=== PATIENT | female | born 2000 | race American Indian/Alaskan Native ===

== ENCOUNTER → 2022-05-27 12:56 | Outpatient (CLI) | payer OTHER, MEDICAID, SELFPAY ==
--- NOTE | 2022-05-27 | DI.RAD.S_ITS ---
PROCEDURE: XR KUB INDICATIONS: Left lower quadrant pain TECHNIQUE: One view of the abdomen acquired. COMPARISON: None. FINDINGS: Surgical changes and devices: None. Bowel: There is a large amount of stool in the ascending colon. The bowel gas pattern is otherwise normal. Soft tissues: No suspicious abdominal calcifications. Visualized solid organ contours appear normal in size. Bones: No suspicious bony lesions. IMPRESSION: Large amount of stool in the ascending colon. Otherwise unremarkable bowel gas pattern. Dictated by: Tali Leach M.D. on 05/27/2022 at 13:22 Approved by: Tali Leach M.D. on 05/27/2022 at 13:23
== END ==
PROVIDERS: PCP Family Medicine; Referring Provider Family Medicine; Visit Provider Family Medicine
DX: R10.32 Left lower quadrant pain (principal)
CPT/HCPCS: 74018

== ENCOUNTER → 2023-08-29 16:14 | Outpatient (CLI) | payer OTHER, SELFPAY ==
[2023-08-29 18:01] LABS: Add Manual Diff / Slide Review NO; Basophils Absolute Auto 100 /uL (0-100); Basophils Percent Auto 0.5 % (0-2); Eosinophils Absolute Auto 100 /uL (0-450); Eosinophils Percent Auto 0.9 % (2-4); Hematocrit 37.8 % (36-46); Hemoglobin 12.8 g/dL (12.0-16.0); Lymphocytes Absolute Auto 2800 /uL (1100-4500); Lymphocytes Percent Auto 27.6 % (25-40); Mean Corpuscular Volume 85.5 fL (80-100); Monocytes Absolute Auto 1100 /uL (0-900); Monocytes Percent Auto 10.5 % (3-14); Neutrophils Absolute Auto 6200 /uL (1500-7000); Neutrophils Percent Auto 60.5 % (50-75); Platelet Count 414 X10^3/uL (150-400); Red Blood Cell Count 4.42 X10^6/uL (4.0-5.2); Red Cell Distribution Width 13.9 % (11.6-14.8); White Blood Cell Count 10.3 X10^3/uL (4.5-11.0)
[2023-08-29 18:17] LABS: Hemoglobin A1C% w Est Avg Glu 5.6 % (4.0-6.0)
[2023-08-29 18:28] LABS: Alanine Aminotransferase 32 IU/L (<35); Albumin 4.4 g/dL (3.5-5.0); Albumin Globulin Ratio 1.5 (1.0-2.8); Alkaline Phosphatase 47 U/L (38-126); Aspartate Aminotransferase 23 IU/L (14-36); BUN Creatinine Ratio 15.5 (6-22); Bilirubin Total 0.4 mg/dL (0.2-1.3); Blood Urea Nitrogen 11 mg/dL (7-17); Calcium 9.2 mg/dL (8.4-10.2); Carbon Dioxide 26 mmol/L (22-32); Chloride 104 mmol/L (98-107); Cholesterol 137 mg/dL (140-199); Estimated Glomerular Filt Rate > 60 mL/min (>60); Globulin 2.9 g/dL (1.7-4.1); Glucose 81 mg/dL (70-100); HDL Cholesterol 52 mg/dL (40-60); HEMOLYSIS < 15 (0-50); LDL Cholesterol Calculated 73 mg/dL (<100); Lipase 34 U/L (23-300); Potassium 3.7 mmol/L (3.4-5.1); Sodium 139 mmol/L (137-145); Total Protein 7.3 g/dL (6.3-8.2); Triglycerides 59 mg/dL (35-150)
[2023-08-31 04:37] LABS: Interpretation Positive (Negative)
== END ==
PROVIDERS: PCP Family Medicine; Referring Provider Registered Nurse; Visit Provider Registered Nurse
DX: R10.9 Unspecified abdominal pain (principal); Z13.1 Encounter for screening for diabetes mellitus; Z13.220 Encounter for screening for lipoid disorders
CPT/HCPCS: 36415; 80053; 80061; 83013; 83036; 83690; 85025

== ENCOUNTER → 2023-11-07 15:48 | Outpatient (CLI) | payer OTHER, SELFPAY ==
--- NOTE | 2023-11-07 16:19 | DI.CT.S_ITS ---
PROCEDURE: CT IVP A/P W/WO INDICATIONS: LUQ/FLANK PAIN/MONOCYTOSIS TECHNIQUE: Optional 5 mm thick noncontrast images acquired from the diaphragm to the symphysis pubis. After the administration of intravenous contrast, 5 mm thick images acquired from the diaphragm to the symphysis pubis after a 10-minute delay. 2 mm thick coronal and sagittal reformats were then performed of the kidneys and ureters. For radiation dose reduction, the following was used: automated exposure control, adjustment of mA and/or kV according to patient size. COMPARISON: None. FINDINGS: Image quality: Diagnostic. Kidneys and Ureters: Both kidneys are normal in size, without hydronephrosis or nephrolithiasis. No perinephric fat stranding. There is normal bilateral renal enhancement. Renal calyces appear normal in morphology when filled with contrast. Opacified portions of both ureters demonstrate normal caliber Bladder: Bladder wall thickness is normal. No calcified bladder stones. OTHER: Lung bases: Unremarkable. Heart: No significant findings. Liver: No solid mass. Gallbladder: No radiopaque gallstones or wall thickening. Biliary ducts: No biliary dilation. Pancreas: No ductal dilation. Spleen: Size is within normal limits. Measures about 9.5 cm in greatest diameter. Adrenal Glands: No adrenal nodules. Stomach and Bowel: Stomach and small bowel loops are normal caliber. Normal appendix and colon. Peritoneum: No abnormal intraperitoneal fluid. No free air. Ventral Wall: No hernia. Abdominal Nodes: No retroperitoneal or mesenteric adenopathy by size criteria. Vessels: Aorta and inferior vena cava are normal in size. PELVIS: Pelvic Organs: Uterus and ovaries have a normal CT appearance. Pelvic Nodes: No enlarged lymph nodes. Miscellaneous: No inguinal hernias are seen. Bones: No aggressive osseous abnormality. IMPRESSION: No nephrolithiasis or filling defects within the opacified renal collecting system or ureters. Normal size spleen. Dictated by: Talia Rodriguez M.D. on 11/08/2023 at 9:23 Approved by: Talia Rodriguez M.D. on 11/08/2023 at 9:29
== END ==
PROVIDERS: PCP Family Medicine; Referring Provider Registered Nurse; Visit Provider Registered Nurse
DX: D72.821 Monocytosis (symptomatic) (principal)
CPT/HCPCS: 74178; Q9967

== ENCOUNTER 2023-11-20 11:12 | Emergency (ER) | payer OTHER, SELFPAY ==
[2023-11-20 11:31] VITALS: BP 105/63; PULSE 79; RESP 16; TEMP 36.9; O2SAT 99; BMI 29.8
[2023-11-20 12:37] VITALS: BP 104/60; PULSE 73; RESP 16; TEMP 37.1; O2SAT 97
--- NOTE | 2023-11-20 13:08 | ED_ITS ---
HPI - Abdominal Pain <NEETA Field - Last Filed: 11/20/23 14:37> General Chief Complaint: Abdominal Pain Stated Complaint: stomach pains Time Seen by Provider: 11/20/23 12:28 Source: patient Mode of arrival: Ambulatory History of Present Illness HPI narrative: 22-year-old female, current some day smoker, presents to emergency department with lower abdominal pain and black stools x3 days. Patient has had left flank pain for 2 months. Patient is currently being treated for H pylori and has an appointment with a GI specialist in 3 days[place] H pylori and preparation H for her hemorrhoids. Patient states that she has been followed by her family doctor for persistent hematuria with all testing for UTIs being negative. Related Data Previous Rx's Medication Instructions Recorded ondansetron 4 mg disintegrating 4 mg PO Q6H PRN nausea and 11/20/23 tablet vomiting #10 tabs Allergies Allergy/AdvReac Type Severity Reaction Status Date / Time No Known Drug Allergies Allergy Verified 11/20/23 11:31 Review of Systems <NEETA Field - Last Filed: 11/20/23 14:37> Review of Systems Narrative: Narrative: See HPI. GENERAL: Denies chills, fatigue, fever, sweats. HEENT: Denies sinus pain, ear pain, sore throat, difficulty swallowing, dizziness. RESPIRATORY: Denies dyspnea, cough, wheezing, sputum. CARDIOVASCULAR: Denies chest pain, palpitations, edema. GASTROINTESTINAL: Denies nausea, vomiting, diarrhea, constipation. Endorses lower abdominal pain and black stools. Endorses alternating between diarrhea and constipation. Last BM was last night and was ?mushy?. : Denies dysuria, frequency, incontinence, hematuria, urinary retention. Endorses two-month history of left flank pain. MSK: Denies weakness, joint pain, or bony pain. SKIN: Denies rash, skin lesions, or pruritis. NEUROLOGIC: Denies weakness, dizziness, headache, numbness, confusion. PSYCHIATRIC: No concerning psychosocial issues. Patient History <NEETA Field - Last Filed: 11/20/23 14:37> Social History Smoking Status: Current some day smoker Smoking Status: Current some day smoker tobacco type: vaping Substance Use Type: does not use Exam <NEETA Field - Last Filed: 11/20/23 14:37> Narrative Exam Narrative: Exam Narrative: GENERAL: This is a well-nourished, well-developed patient, in no acute distress. HEAD: Atraumatic. Normocephalic. EYES: Pupils equal round and reactive. No scleral icterus, injection or drainage. ENT: Nose without bleeding, purulent drainage. Airway patent. CARDIOVASCULAR: Regular rate and rhythm without murmurs, peripheral pulses intact, cap refill <2 sec. RESPIRATORY: Breath sounds equal and clear bilaterally. No wheezes, rales, or rhonchi. No cough. No increased respiratory effort. No accessory muscle use. GASTROINTESTINAL: Abdomen soft, mild lower quadrant tenderness, nondistended without guarding or rebound. No suprapubic pain. Guaiac test was negative. MSK: Moves all extremities. Normal range of motion, no clubbing or edema. Neurovascularly intact. NEURO: A&O x 3. SKIN: Warm, dry, no rashes or lesions noted. Initial Vital Signs Initial Vital Signs: Vital Signs Temperature 98.5 F 11/20/23 11:31 Pulse Rate 79 11/20/23 11:31 Respiratory Rate 16 11/20/23 11:31 Blood Pressure 105/63 11/20/23 11:31 Pulse Oximetry 99 11/20/23 11:31 Oxygen Delivery Method Room Air 11/20/23 11:31 Reviewed <Tristan Crespo MD - Last Filed: 11/21/23 18:27> Initial Vital Signs Initial Vital Signs: Vital Signs Temperature 98.5 F 11/20/23 11:31 Pulse Rate 79 11/20/23 11:31 Respiratory Rate 16 11/20/23 11:31 Blood Pressure 105/63 11/20/23 11:31 Pulse Oximetry 99 11/20/23 11:31 Oxygen Delivery Method Room Air 11/20/23 11:31 Course <NEETA Field - Last Filed: 11/20/23 14:37> Orders Ordered: ED Orders 11/20/23 13:09 CBC Auto Diff [Complete Blood Count AUTO DIFF] Stat CMP [Comprehensive Metabolic Panel] Stat PT [Prothrombin Time INR] Stat PTT Partial Thromboplastin Garret Stat Vital Signs Vital signs: Vital Signs - 8 hr 11/20/23 11:31 11/20/23 12:37 Temperature 98.5 F 98.8 F Pulse Rate 79 73 Respiratory Rate 16 16 Blood Pressure 105/63 104/60 Pulse Oximetry 99 97 Oxygen Delivery Method Room Air Room Air <Tristan Crespo MD - Last Filed: 11/21/23 18:27> Orders Ordered: ED Orders 11/20/23 13:09 CBC Auto Diff [Complete Blood Count AUTO DIFF] Stat CMP [Comprehensive Metabolic Panel] Stat PT [Prothrombin Time INR] Stat PTT Partial Thromboplastin Garret Stat Vital Signs Vital signs: Vital Signs - 8 hr 11/20/23 11:31 11/20/23 12:37 Temperature 98.5 F 98.8 F Pulse Rate 79 73 Respiratory Rate 16 16 Blood Pressure 105/63 104/60 Pulse Oximetry 99 97 Oxygen Delivery Method Room Air Room Air MDM - Abdominal Pain <NEETA Field - Last Filed: 11/20/23 14:37> Differential Diagnosis Differential diagnosis: Likely abdominal pain and other (GI bleed, UTI) Lab Data 11/20/23 13:09 11/20/23 13:09 Labs: Lab Results 11/20/23 Range/Units 13:09 WBC 8.8 (4.5-11.0) X10^3/uL RBC 4.45 (4.0-5.2) X10^6/uL Hgb 12.6 (12.0-16.0) g/dL Hct 37.9 (36-46) % MCV 85.1 (80-100) fL MCH 28.4 (26-34) PG MCHC 33.3 (30-36) % RDW 14.0 (11.6-14.8) % Plt Count 437 H (150-400) X10^3/uL Neut % (Auto) 60.1 (50-75) % Lymph % (Auto) 29.4 (25-40) % [place] % (Auto) 8.8 (3-14) % Eos % (Auto) 0.9 L (2-4) % Baso % (Auto) 0.8 (0-2) % Neut # (Auto) 5300 (3138-6124) /uL Lymph # (Auto) 2600 (8545-7267) /uL [place] # (Auto) 800 (0-900) /uL Eos # (Auto) 100 (0-450) /uL Baso # (Auto) 100 (0-100) /uL PT 13.5 H (9.4-12.5) SECONDS INR 1.2 (0.9-1.3) APTT 28 (25.1-36.5) SECONDS Sodium 138 (137-145) mmol/L Potassium 3.9 (3.4-5.1) mmol/L Chloride 105 (98-107) mmol/L Carbon Dioxide 27 (22-32) mmol/L BUN 14 (7-17) mg/dL Creatinine 0.74 (0.52-1.04) mg/dL Estimated GFR > 60 (>60) mL/min BUN/Creatinine Ratio 18.9 (6-22) Glucose 93 (70-100) mg/dL Calcium 9.2 (8.4-10.2) mg/dL Total Bilirubin 0.6 (0.2-1.3) mg/dL AST 24 (14-36) IU/L ALT 22 (<35) IU/L Alkaline Phosphatase 53 (38-126) U/L Total Protein 7.7 (6.3-8.2) g/dL Albumin 4.2 (3.5-5.0) g/dL Globulin 3.5 (1.7-4.1) g/dL Albumin/Globulin Ratio 1.2 (1.0-2.8) Point of care testing: Point of Care Testing Test Results Negative Urine Dip Bedside Urine Glucose Negative Bedside Urine Bilirubin - Negative Bedside Urine Ketone - Negative Urine Specific [place] 1.025 Bedside Urine Occult Blood ++ Bedside Urine pH 6.0 Bedside Urine Protein - Negative Bedside Urine Urobilinogen - Negative Bedside Urine Nitrite - Negative Bedside Urine Leukocytes - Negative Esterase MDM Narrative Medical decision making narrative: 22-year-old female with reported black stools. Assessment was unremarkable and guaiac test was negative. No visible external hemorrhoids. Labs were all within normal limits. Patient does have hematuria, but that has been normal for her and is being followed up with by her family doctor. Point of care urine dip was not consistent with UTI. Will send patient home with a short prescription of ondansetron. Patient has an appointment with her GI specialist in 3 days. I suspect the medication she is taking, that has bismuth subcitrate in it, may be the cause of her dark stools. Discussed plan of care with patient and mother, who verbalized understanding and were agreeable with course of action. <Tristan Crespo MD - Last Filed: 11/21/23 18:27> Lab Data Labs: Lab Results 11/20/23 Range/Units 13:09 WBC 8.8 (4.5-11.0) X10^3/uL RBC 4.45 (4.0-5.2) X10^6/uL Hgb 12.6 (12.0-16.0) g/dL Hct 37.9 (36-46) % MCV 85.1 (80-100) fL MCH 28.4 (26-34) PG MCHC 33.3 (30-36) % RDW 14.0 (11.6-14.8) % Plt Count 437 H (150-400) X10^3/uL Neut % (Auto) 60.1 (50-75) % Lymph % (Auto) 29.4 (25-40) % [place] % (Auto) 8.8 (3-14) % Eos % (Auto) 0.9 L (2-4) % Baso % (Auto) 0.8 (0-2) % Neut # (Auto) 5300 (9646-8321) /uL Lymph # (Auto) 2600 (9671-7110) /uL [place] # (Auto) 800 (0-900) /uL Eos # (Auto) 100 (0-450) /uL Baso # (Auto) 100 (0-100) /uL PT 13.5 H (9.4-12.5) SECONDS INR 1.2 (0.9-1.3) APTT 28 (25.1-36.5) SECONDS Sodium 138 (137-145) mmol/L Potassium 3.9 (3.4-5.1) mmol/L Chloride 105 (98-107) mmol/L Carbon Dioxide 27 (22-32) mmol/L BUN 14 (7-17) mg/dL Creatinine 0.74 (0.52-1.04) mg/dL Estimated GFR > 60 (>60) mL/min BUN/Creatinine Ratio 18.9 (6-22) Glucose 93 (70-100) mg/dL Calcium 9.2 (8.4-10.2) mg/dL Total Bilirubin 0.6 (0.2-1.3) mg/dL AST 24 (14-36) IU/L ALT 22 (<35) IU/L Alkaline Phosphatase 53 (38-126) U/L Total Protein 7.7 (6.3-8.2) g/dL Albumin 4.2 (3.5-5.0) g/dL Globulin 3.5 (1.7-4.1) g/dL Albumin/Globulin Ratio 1.2 (1.0-2.8) Point of care testing: Point of Care Testing Test Results Negative Urine Dip Bedside Urine Glucose Negative Bedside Urine Bilirubin - Negative Bedside Urine Ketone - Negative Urine Specific [place] 1.025 Bedside Urine Occult Blood ++ Bedside Urine pH 6.0 Bedside Urine Protein - Negative Bedside Urine Urobilinogen - Negative Bedside Urine Nitrite - Negative Bedside Urine Leukocytes - Negative Esterase MDM Narrative Medical decision making narrative: 22-year-old female with reported black stools. Assessment was unremarkable and guaiac test was negative. No visible external hemorrhoids. Labs were all within normal limits. Patient does have hematuria, but that has been normal for her and is being followed up with by her family doctor. Point of care urine dip was not consistent with UTI. Will send patient home with a short prescription of ondansetron. Patient has an appointment with her GI specialist in 3 days. I suspect the medication she is taking, that has bismuth subcitrate in it, may be the cause of her dark stools. Discussed plan of care with patient and mother, who verbalized understanding and were agreeable with course of action. Case was discussed prior to discharge. I agree with the above plan Discharge Plan Departure Patient Disposition: Home Clinical Impression: Nausea Instructions: DI for Abdominal Pain-Adult Activity Restrictions/Additional Instructions: *You have been diagnosed with nausea. My assessment was encouraging and your labs were all within normal limits. Your CT from last month was normal and therefore a repeat was not conducted. There was no blood found in your stool at this time. Due to these positive results, I Feel confident sending you home before your appointment with GI in 3 days. I suspect the medication you are taking contributed to your dark stools. Will send a prescription for a short course of antinausea medication to help you stay hydrated and eat. For any worsening symptoms, please feel free to return to the emergency department. *What to do: *Please continue to take your regular medications as directed. [ x] New medication prescriptions sent to your pharmacy: [[facility]] [ ] New medication written as a paper prescription [ ] No new medications given *Please follow up with your primary care provider in 2-3 days, call for an appointment. Let them know you were seen in the Emergency Department and that we ask that you be seen in follow up. We will electronically transmit a record of today's note if your PCP is in our system *If you do not have a primary care provider please contact the [facility] Resource line at [phone]. They will ask some questions about your medical history and help get you set up with a doctor in the community. ? Return to ER if you should have any new, worsening or concerning symptoms, such as worsening pain, severe headache, confusion, chest pain, difficulty breathing, fever greater than 101 F, shaking chills, persistent vomiting to the point that you cannot drink fluids, or other new or worsening symptoms. Prescriptions: New ondansetron 4 mg tablet,disintegrating 4 mg PO Q6H PRN (Reason: nausea and vomiting) Qty: 10 0RF Referrals: Mabel Hartman ARNP [Primary Care Provider] - Stand Alone Forms: Patient Portal/API
[2023-11-20 13:33] LABS: INR 1.2 (0.9-1.3); Prothrombin Time 13.5 SECONDS (9.4-12.5)
[2023-11-20 13:36] LABS: Add Manual Diff / Slide Review NO; Basophils Absolute Auto 100 /uL (0-100); Basophils Percent Auto 0.8 % (0-2); Eosinophils Absolute Auto 100 /uL (0-450); Eosinophils Percent Auto 0.9 % (2-4); Hematocrit 37.9 % (36-46); Hemoglobin 12.6 g/dL (12.0-16.0); Lymphocytes Absolute Auto 2600 /uL (1100-4500); Lymphocytes Percent Auto 29.4 % (25-40); Mean Corpuscular HGB Conc 33.3 % (30-36); Mean Corpuscular Hemoglobin 28.4 PG (26-34); Mean Corpuscular Volume 85.1 fL (80-100); Monocytes Absolute Auto 800 /uL (0-900); Monocytes Percent Auto 8.8 % (3-14); Neutrophils Absolute Auto 5300 /uL (1500-7000); Neutrophils Percent Auto 60.1 % (50-75); PTT Partial Thromboplastin Tim 28 SECONDS (25.1-36.5); Platelet Count 437 X10^3/uL (150-400); Red Blood Cell Count 4.45 X10^6/uL (4.0-5.2); White Blood Cell Count 8.8 X10^3/uL (4.5-11.0)
[2023-11-20 13:37] LABS: Alanine Aminotransferase 22 IU/L (<35); Albumin 4.2 g/dL (3.5-5.0); Albumin Globulin Ratio 1.2 (1.0-2.8); Alkaline Phosphatase 53 U/L (38-126); Aspartate Aminotransferase 24 IU/L (14-36); BUN Creatinine Ratio 18.9 (6-22); Bilirubin Total 0.6 mg/dL (0.2-1.3); Blood Urea Nitrogen 14 mg/dL (7-17); Calcium 9.2 mg/dL (8.4-10.2); Carbon Dioxide 27 mmol/L (22-32); Chloride 105 mmol/L (98-107); Estimated Glomerular Filt Rate > 60 mL/min (>60); Globulin 3.5 g/dL (1.7-4.1); Glucose 93 mg/dL (70-100); HEMOLYSIS < 15 (0-50); Potassium 3.9 mmol/L (3.4-5.1); Sodium 138 mmol/L (137-145); Total Protein 7.7 g/dL (6.3-8.2)
[2023-11-20 14:32] VITALS: BP 121/70; PULSE 76; RESP 18; TEMP 36.4; O2SAT 97
== END 2023-11-20 14:44 | disposition home or self-care (01) ==
PROVIDERS: Emergency Provider Registered Nurse; PCP Registered Nurse
DX: R10.30 Lower abdominal pain, unspecified (principal); R11.0 Nausea
CPT/HCPCS: 80053; 81003; 81025; 85025; 85610; 85730; 99282; 99283

== ENCOUNTER 2023-12-02 01:00 | Emergency (ER) | payer OTHER, SELFPAY ==
[2023-12-02 01:05] VITALS: BP 124/66; PULSE 88; RESP 18; TEMP 36.6; O2SAT 98; BMI 32.3
--- NOTE | 2023-12-02 01:29 | DI.CT.S_ITS ---
PROCEDURE: CT ABDOMEN PELVIS W CON INDICATIONS: RLQ abd pain TECHNIQUE: After the administration of intravenous contrast, axial sections acquired from the lung bases to the pubic symphysis. Coronal and sagittal reformats were performed. For radiation dose reduction, the following was used: automated exposure control, adjustment of mA and/or kV according to patient size. COMPARISON: None. FINDINGS: Image quality: Diagnostic. Lower Chest: No significant findings. ABDOMEN: Liver: No solid mass. Gallbladder: No radiopaque gallstones or wall thickening. Biliary ducts: No biliary dilation. Pancreas: No ductal dilation. Spleen: Size is within normal limits. Adrenal Glands: No adrenal nodules. Kidneys and Ureters: No hydronephrosis. No solid mass. No complex renal cystic lesion which requires follow up. Stomach and Bowel: Normal colonic caliber, without significant wall thickening. Normal appendix identified Peritoneum: No abnormal intraperitoneal fluid. No free air. Ventral Wall: No hernia. Abdominal Nodes: No retroperitoneal or mesenteric adenopathy by size criteria. Vessels: Aorta and inferior vena cava are normal in size. PELVIS: Pelvic Organs: Unremarkable. Bladder: Unremarkable. Pelvic Nodes: No enlarged lymph nodes. Miscellaneous: No inguinal hernias are seen. Bones: No aggressive osseous abnormality. IMPRESSION: Unremarkable CT angiogram abdomen and pelvis with contrast Note: This final report is concordant with the preliminary after-hours interpretation provided by [facility] Approved by: Shorty Howard M.D. on 12/02/2023 at 9:47
--- NOTE | 2023-12-02 01:29 | ED.GENADULT ---
HPI - General Adult General Chief complaint: Abdominal Pain Stated complaint: abd pain cnat really eat Time Seen by Provider: 12/02/23 01:01 Source: patient Mode of arrival: Ambulatory History of Present Illness HPI narrative: Patient is a 23-year-old female. For the past several months has been having issues with abdominal discomfort. Also issues with constipation that does not seem to be relieved by laxatives. She was scheduled to have a colonoscopy and an upper endoscopy on Monday. She is here for evaluation of just over 24 hours of right lower quadrant abdominal pain. She also states she does not have any appetite. No fevers. No vomiting. No change in urinary symptoms. No prior abdominal surgeries. Related Data Home Medications Medication Instructions Recorded Confirmed citalopram 20 mg tablet 20 mg PO DAILY 11/29/23 11/29/23 dextroamphetamine-amphetamine ER 10 mg PO QAM 11/29/23 11/29/23 10 mg 24hr capsule,extend release omeprazole 20 mg capsule,delayed 20 mg PO DAILY 11/29/23 11/29/23 release Previous Rx's Medication Instructions Recorded ondansetron 4 mg disintegrating 4 mg PO Q6H PRN nausea and 11/20/23 tablet vomiting #10 tabs Allergies Allergy/AdvReac Type Severity Reaction Status Date / Time tomato Allergy Severe Anaphylaxis Verified 12/01/23 12:47 bupropion AdvReac stomach Verified 11/29/23 15:06 upset Review of Systems Constitutional Constitutional: Reports system reviewed and no additional complaints, except as documented Gastrointestinal Gastrointestinal: Reports system reviewed and no additional complaints, except as documented Genitourinary Genitourinary: Reports system reviewed and no additional complaints, except as documented Integumentary/Breasts Skin/Breast: Reports system reviewed and no additional complaints, except as documented Patient History Medical History Asthma Tension headache Anxiety Insomnia Family History (Updated 11/29/23 @ 15:13 by Lucia Urena RN) Grandmother Hypertension Gallstones Grandfather Diabetes mellitus Cancer Social History Smoking Status: Current every day smoker Smoking Status: Current every day smoker tobacco type: vaping Substance Use Type: does not use Exam Initial Vital Signs Initial Vital Signs: Vital Signs Temperature 97.8 F 12/02/23 01:05 Pulse Rate 88 12/02/23 01:05 Respiratory Rate 18 12/02/23 01:05 Blood Pressure 124/66 12/02/23 01:05 Pulse Oximetry 98 12/02/23 01:05 Oxygen Delivery Method Room Air 12/02/23 01:05 Const General: cooperative and comfortable Resp Effort & Inspection: normal respiratory effort Auscultation: clear to auscultation bilaterally Cardio Rate: regular rate Rhythm: regular rhythm GI Inspection: normal to inspection and non-distended Palpation: soft, No firm, No guarding and tender (Right lower quadrant) Skin General: no rashes or lesions noted Neuro General: patient alert and moves all extremities Extrem General: capillary refill normal Course Orders Ordered: ED Orders 12/02/23 01:29 CT abdomen pelvis w con Stat 12/02/23 01:35 Complete Blood Count AUTO DIFF Stat Comprehensive Metabolic Panel Stat Lipase Stat 12/02/23 01:38 Urine Microscopic Stat Discontinued Medications Ketorolac Tromethamine (Ketorolac 30 Mg/Ml Vial) 30 mg IV NOW ONE Stop: 12/02/23 02:04 Last Admin: 12/02/23 02:31 Dose: 30 mg Documented By: AB Vital Signs Vital signs: Vital Signs - 8 hr 12/02/23 01:05 12/02/23 02:31 Temperature 97.8 F 98.3 F Pulse Rate 88 Respiratory Rate 18 Blood Pressure 124/66 Pulse Oximetry 98 Oxygen Delivery Method Room Air Medical Decision Making Lab Data Lab results reviewed: Yes I reviewed the patient's lab results. 12/02/23 01:35 12/02/23 01:35 Labs: Lab Results 12/02/23 12/02/23 Range/Units 01:35 01:38 WBC 11.2 H (4.5-11.0) X10^3/uL RBC 4.51 (4.0-5.2) X10^6/uL Hgb 12.7 (12.0-16.0) g/dL Hct 38.1 (36-46) % MCV 84.3 (80-100) fL MCH 28.2 (26-34) PG MCHC 33.5 (30-36) % RDW 14.3 (11.6-14.8) % Plt Count 414 H (150-400) X10^3/uL Neut % (Auto) 53.6 (50-75) % Lymph % (Auto) 35.5 (25-40) % [place]aines % (Auto) 9.0 (3-14) % Eos % (Auto) 1.1 L (2-4) % Baso % (Auto) 0.8 (0-2) % Neut # (Auto) 6000 (4290-8175) /uL Lymph # (Auto) 4000 (7035-2992) /uL Gaines # (Auto) 1000 H (0-900) /uL Eos # (Auto) 100 (0-450) /uL Baso # (Auto) 100 (0-100) /uL Sodium 138 (137-145) mmol/L Potassium 3.1 L (3.4-5.1) mmol/L Chloride 105 (98-107) mmol/L Carbon Dioxide 21 L (22-32) mmol/L BUN 8 (7-17) mg/dL Creatinine 0.75 (0.52-1.04) mg/dL Estimated GFR > 60 (>60) mL/min BUN/Creatinine Ratio 10.7 (6-22) Glucose 102 H (70-100) mg/dL Calcium 9.3 (8.4-10.2) mg/dL Total Bilirubin 0.6 (0.2-1.3) mg/dL AST 26 (14-36) IU/L ALT 26 (<35) IU/L Alkaline Phosphatase 50 (38-126) U/L Total Protein 8.0 (6.3-8.2) g/dL Albumin 4.5 (3.5-5.0) g/dL Globulin 3.5 (1.7-4.1) g/dL Albumin/Globulin Ratio 1.3 (1.0-2.8) Lipase 42 (23-300) U/L Urine RBC 0-1/hpf (0-5/HPF) Urine WBC None seen (0-5/HPF) Ur Squamous Epith Cells 1-5 /hpf (0-5/HPF) Amorphous Sediment 3+ Urine Bacteria None seen (None) Ur Culture Indicated? Cult not indicated Vol Urine Centrifuged 10ml (spun) Point of Care Testing Test Results Negative Urine Dip Bedside Urine Glucose Negative Bedside Urine Bilirubin - Negative Bedside Urine Ketone +/- 5 Urine Specific [place] 1.020 Bedside Urine Occult Blood + Bedside Urine pH 6.0 Bedside Urine Protein - Negative Bedside Urine Urobilinogen - Negative Bedside Urine Nitrite - Negative Bedside Urine Leukocytes - Negative Esterase Point of care testing: Point of Care Testing Test Results Negative Urine Dip Bedside Urine Glucose Negative Bedside Urine Bilirubin - Negative Bedside Urine Ketone +/- 5 Urine Specific [place] 1.020 Bedside Urine Occult Blood + Bedside Urine pH 6.0 Bedside Urine Protein - Negative Bedside Urine Urobilinogen - Negative Bedside Urine Nitrite - Negative Bedside Urine Leukocytes - Negative Esterase Imaging Data CT scan - abdomen/pelvis: Radiologist's Impression: Unremarkable CT of abdomen and pelvis with contrast Normal-appearing appendix MDM Narrative Medical decision making narrative: Patient has a benign exam. Labs are unremarkable. CT scan shows no acute pathology. No signs of ureteral stone. No signs of appendicitis. test is negative. She was scheduled to have a colonoscopy and endoscopy performed on Monday which I think is appropriate given her workup here. Will discharge patient home with instructions to keep that appointment. Discharge Plan Departure Patient Disposition: Home Clinical Impression: Abdominal pain Instructions: DI for Abdominal Pain-Adult Activity Restrictions/Additional Instructions: Recommend that you continue to take any medications as directed and keep your appointment to have the colonoscopy and endoscopy performed on Monday has you have scheduled. Contact your primary doctor for a follow-up. Prescriptions: No Action omeprazole 20 mg capsule,delayed release(DR/EC) 20 mg PO DAILY dextroamphetamine-amphetamine 10 mg capsule,extended release 24hr 10 mg PO QAM citalopram 20 mg tablet 20 mg PO DAILY ondansetron 4 mg tablet,disintegrating 4 mg PO Q6H PRN (Reason: nausea and vomiting) Qty: 10 0RF Referrals: Mabel Hartman ARNP [Primary Care Provider] - Stand Alone Forms: Patient Portal/API
[2023-12-02 01:39] LABS: Urine Volume 10mL (spun)
[2023-12-02 01:51] LABS: Amorphous Sediment Urine 3+; Bacteria Urine None Seen; Culture Indicated Urine Cult Not Indicated; RBC Urine 0-1/HPF (0-5/HPF); Squamous Epithelial Cell Urine 1-5 /HPF (0-5/HPF); WBC Urine None Seen (0-5/HPF)
[2023-12-02 01:55] LABS: Add Manual Diff / Slide Review NO; Basophils Absolute Auto 100 /uL (0-100); Basophils Percent Auto 0.8 % (0-2); Eosinophils Absolute Auto 100 /uL (0-450); Eosinophils Percent Auto 1.1 % (2-4); Hematocrit 38.1 % (36-46); Hemoglobin 12.7 g/dL (12.0-16.0); Lymphocytes Absolute Auto 4000 /uL (1100-4500); Lymphocytes Percent Auto 35.5 % (25-40); Mean Corpuscular HGB Conc 33.5 % (30-36); Mean Corpuscular Hemoglobin 28.2 PG (26-34); Mean Corpuscular Volume 84.3 fL (80-100); Monocytes Absolute Auto 1000 /uL (0-900); Neutrophils Absolute Auto 6000 /uL (1500-7000); Neutrophils Percent Auto 53.6 % (50-75); Platelet Count 414 X10^3/uL (150-400); Red Blood Cell Count 4.51 X10^6/uL (4.0-5.2); Red Cell Distribution Width 14.3 % (11.6-14.8); White Blood Cell Count 11.2 X10^3/uL (4.5-11.0)
[2023-12-02 01:57] LABS: Alanine Aminotransferase 26 IU/L (<35); Albumin 4.5 g/dL (3.5-5.0); Albumin Globulin Ratio 1.3 (1.0-2.8); Alkaline Phosphatase 50 U/L (38-126); Aspartate Aminotransferase 26 IU/L (14-36); BUN Creatinine Ratio 10.7 (6-22); Bilirubin Total 0.6 mg/dL (0.2-1.3); Blood Urea Nitrogen 8 mg/dL (7-17); Calcium 9.3 mg/dL (8.4-10.2); Carbon Dioxide 21 mmol/L (22-32); Chloride 105 mmol/L (98-107); Estimated Glomerular Filt Rate > 60 mL/min (>60); Globulin 3.5 g/dL (1.7-4.1); Glucose 102 mg/dL (70-100); HEMOLYSIS < 15 (0-50); Lipase 42 U/L (23-300); Potassium 3.1 mmol/L (3.4-5.1); Sodium 138 mmol/L (137-145)
[2023-12-02 02:31] VITALS: TEMP 36.8
[2023-12-02] MEDS: KETOROLAC 30 MG/ML VIAL IV (02:31)
[2023-12-02 03:30] VITALS: BP 103/58; PULSE 74; RESP 16; TEMP 36.7; O2SAT 98
== END 2023-12-02 03:30 | disposition home or self-care (01) ==
PROVIDERS: Emergency Provider Emergency Medicine; PCP Registered Nurse
DX: R10.31 Right lower quadrant pain (principal)
CPT/HCPCS: 36415; 74177; 80053; 81003; 81015; 81025; 83690; 85025; 96374; 99284; J1885; Q9967

== ENCOUNTER → 2023-12-04 09:01 | Outpatient (CLI) | payer OTHER, SELFPAY ==
--- NOTE | 2023-12-04 09:02 | DI.US.S_ITS ---
PROCEDURE: US ABDOMEN COMPLETE INDICATIONS: PAIN TECHNIQUE: Real-time scanning was performed of the abdominal and retroperitoneal organs, with image documentation. COMPARISON: [facility], CT, CT ABDOMEN PELVIS W CON, 12/02/2023, 2:08. FINDINGS: Liver: Liver is normal in size and homogeneous in echotexture. Gallbladder: Unremarkable. Biliary ducts: Intrahepatic bile ducts are non-dilated. Extrahepatic bile duct caliber measures 2.6 mm. Normal is 6-7 mm or less in diameter, or 10 mm or less post-cholecystectomy. Pancreas: Visualized portions of the pancreas are sonographically normal. Spleen: Spleen is normal in size and homogeneous in echotexture. Kidneys: Kidneys are normal in size and echotexture. Right kidney measures 10.2 cm long; left kidney measures 10.2 cm long. No hydronephrosis or nephrolithiasis. No solid masses. Aorta: Visualized aorta is normal in caliber at less than 3 cm. Iliacs: Proximal common iliac arteries are normal in caliber at less than 2.5 cm. IVC: Intrahepatic inferior vena cava is patent. Miscellaneous: No free abdominal fluid. IMPRESSION: Unremarkable exam. Dictated by: Gracie Govea M.D. on 12/04/2023 at 15:20 Approved by: Gracie Govea M.D. on 12/04/2023 at 15:20
== END ==
LOC: US 09:02
PROVIDERS: PCP Registered Nurse; Referring Provider Surgery; Visit Provider Surgery
DX: R10.9 Unspecified abdominal pain (principal)
CPT/HCPCS: 76700

== ENCOUNTER 2023-12-04 09:56 | Day surgery (SDC) | payer OTHER, SELFPAY ==
--- NOTE | 2023-12-04 | PATH_ITS ---
[facility] Accession Number: [id number] No. of containers..01 Tissue . 01 Material submitted: . gastrointestinal site - ANTRAL BIOPSY . 01 Clinical history: . H.PYLORI . 01 Diagnosis: Stomach, Antrum, Biopsy: Antral mucosa with mild chronic gastritis. Negative for Helicobacter by immunohistochemistry. Negative for intestinal metaplasia. Negative for dysplasia or malignancy. PKU 12/06/2023 1907 Local . 01 Electronically signed: . Patricia Grewal MD, Pathologist NPI- [id number] . 01 Gross description: . ANTRAL BIOPSY: Received in formalin is 1 fragment(s) of peterson, soft tissue measuring 0.3 x 0.2 x 0.2 cm submitted entirely in 1 cassette(s) /SAAD 12/05/20231923 Local . 01 Microscopic: . An immunohistochemical stain was performed to evaluate for Helicobacter organisms and is negative. The control stain showed appropriate reactivity. . * This test was developed and its performance characteristics determined by [facility]. It has not been cleared or approved by the U.S. Food and Drug Administration. The FDA has determined that such clearance or approval is not necessary. This test is used for clinical purposes. It should not be regarded as investigational or for research. . 01 Pathologist provided ICD-10: R10.9 . 01 CPT . 643974, L32284 Specimen Comment: A courtesy copy of this report has been sent to [phone] Performed at: 01 [facility] [address] [place] [address] [id number] MD Jermaine Clemons MD Phone: [phone]
[2023-12-04] MEDS: LACTATED RINGERS 1,000 ML 42 ML IV (10:13)
[2023-12-04 10:23] VITALS: BP 103/70; PULSE 64; RESP 16; TEMP 36.3; O2SAT 98
--- NOTE | 2023-12-04 10:53 | PM.HP.1 ---
History of Present Illness History of Present Illness Date Patient Seen: 12/04/23 Time Patient Seen: 10:53 Chief complaint: EGD & Colonoscopy Narrative: Since September she has been having rectal pain with defecation and perianal itching. There is blood in the stool with time and has not improved. One episode of potential parasites in the stool but has never been confirmed, she was prophylactically treated with an anti parasitic. With regards to her stomach she has early satiety and if she eats too much she may throw up. Denies any anti weight loss medications that would cause gastroparesis. No family history for GI cancers PFSH Medical History Asthma Tension headache Anxiety Insomnia Family History Grandmother Hypertension Gallstones Grandfather Diabetes mellitus Cancer Social History Smoking Status: Current every day smoker alcohol intake: current Meds Home Medications and Allergies Home Medications Medication Instructions Recorded Confirmed Type omeprazole 20 mg capsule,delayed 20 mg PO DAILY 11/29/23 12/04/23 History release dextroamphetamine-amphetamine ER 1 cap PO QAM 12/04/23 12/04/23 History 20 mg 24hr capsule,extend release Allergies Allergy/AdvReac Type Severity Reaction Status Date / Time tomato Allergy Severe Anaphylaxis Verified 12/04/23 10:33 bupropion AdvReac stomach Verified 12/04/23 10:33 upset Review of Systems Review of Systems ROS: Yes All systems reviewed with the patient and are negative except as otherwise documented Exam Vital Signs (past 8 hours): - 12/04/23 10:23 Temperature 97.3 F L Pulse Rate 64 Respiratory Rate 16 Blood Pressure 103/70 Pulse Oximetry 98 Oxygen Delivery Method Room Air Oxygen Delivery Method Room Air Const General: cooperative and healthy appearing Nutritional Appearance: well nourished HENWY Head: normocephalic and atraumatic Eyes Sclera: sclerae normal Neck Neck: trachea midline and No JVD Resp Effort & Inspection: normal respiratory effort and able to speak in complete sentences Cardio Rate: regular rate Rhythm: regular rhythm GI Palpation: soft and No tender Skin General: elasticity normal and turgor normal Neuro General: patient alert, patient awake and patient oriented x3 Cognition: normal cognition Psych Mental Status: mental status grossly normal Attitude: cooperative Judgment: judgment good Assessment & Plan Assessment & Plan narrative: Perirectal pain is consistent with anal fissure. Early satiety with associated nausea vomiting Plan: EGD and colonoscopy with anesthesia Time Spent With Patient Time with patient: less than 30 minutes
[2023-12-04 11:25] VITALS: BP 95/47; PULSE 88; RESP 16; TEMP 37.1; O2SAT 98
--- NOTE | 2023-12-04 11:26 | P.OP.EGD&C_ITS ---
Operative Date/Time/Diagnoses Date of procedure: 12/04/23 Time of procedure: 11:27 Pre-op diagnosis: Perirectal pain with defecation, early satiety with nausea vomiting Post-op diagnosis: same Procedure & Clinicians Study performed: EGD and colonoscopy with anesthesia. Cold forceps biopsy of stomach antrum for H pylori new Manual anal dilatation Same procedure as scheduled: Yes Indications: Perirectal pain with defecation, early satiety Surgeon: Dorinda Paul Procedure Notes Procedure in detail: Preop diagnosis: Perirectal pain with defecation, early satiety Postop diagnosis: Same Operative procedure: EGD with cold forceps biopsy, colonoscopy, manual anal dilatation Surgeon: Darcie Paul MD Findings: Evidence of anal fissure with slight stenosis of the anus. Unusually large opening of the orifice of the appendix without pathology. No polyps or masses within the colon. EGD demonstrated antral erosions of which cold forceps biopsies were taken for H pylori Procedure. Patient placed in lateral position. Rectal exam was performed showing slightly increased tone and a firmness or scarring at the 12 o'clock position of the anus consistent with anal fissure. Scope was inserted into the rectum and advanced to ileocecal valve with minimal difficulty. Insufflation extraction of the scope including retroflex in the rectum had the above findings. Using the same anesthetic EGD was performed by intubating into the esophagus insufflating sliding into the stomach and from there identifying the pylorus intubated into the duodenal. Insufflation extraction scope and the above findings. Retroflex was included. Impression: EGD demonstrated antral erosions and gastritis but no overt ulcers. She is reported to be on omeprazole once a day. Biopsies were taken for H pylori with pathology pending. Colonoscopy demonstrated anal fissure of interested large orifice of the appendix without evidence of abnormality visually or on previous CT scan. Plan: With an extra dosing of propofol was able to do a manual anal dilatation in hopes of resolving her anal fissure. I had good relaxation of the sphincter which should produce results for her. Her gastritis and gastric erosions should be treated by increasing her dosing of PPI to double dose and twice a day for 6- 8 weeks. Findings: gastritis and other findings (Anal fissure) Specimen(s): other (Antral biopsies of the stomach for H pylori) Complications: none Post-procedure Recommendations: Other recommendation (Patient is not old enough to have screening for colon cancer. Any further endoscopy should be on basis of clinical findings for now.) Plan for aftercare: Increase PPI for a double dose twice a day 6-8 weeks, follow up with PCP 1-2 weeks for results of H pylori to be determined if treatment is needed Follow up: as needed Disposition: PACU
[2023-12-04 11:30] VITALS: BP 97/58; PULSE 88; RESP 97; O2SAT 16
[2023-12-04 11:35] VITALS: BP 97/58; PULSE 95; RESP 16; O2SAT 98
[2023-12-04 11:40] VITALS: BP 113/68; PULSE 98; RESP 16; TEMP 36.2; O2SAT 98
[2023-12-04 11:47] VITALS: BP 106/65; PULSE 78; RESP 16; TEMP 36.2; O2SAT 98
== END 2023-12-04 12:07 | disposition home or self-care (01) ==
PROVIDERS: PCP Registered Nurse; Referring Provider Surgery; Visit Provider Surgery
PROC: 0DJ08ZZ Inspection of Upper Intestinal Tract, Via Natural or Artificial Opening Endoscopic (ICD-10-PCS; CPT 43235; principal; 2023-12-04 10:30)
PROC: 0DJD8ZZ Inspection of Lower Intestinal Tract, Via Natural or Artificial Opening Endoscopic (ICD-10-PCS; CPT 45378; 2023-12-04 10:30)
DX: K62.89 Other specified diseases of anus and rectum (principal); R68.81 Early satiety; R11.2 Nausea with vomiting, unspecified; K60.2 Anal fissure, unspecified; K62.4 Stenosis of anus and rectum; K29.50 Unspecified chronic gastritis without bleeding
CPT/HCPCS: 45378; 43239; 76700; 81025; J2704

== ENCOUNTER 2025-01-04 18:46 | Emergency (ER) | payer OTHER, SELFPAY ==
[2025-01-04 18:52] VITALS: BP 114/67; PULSE 87; RESP 17; TEMP 36.4; O2SAT 98; BMI 28.9
--- NOTE | 2025-01-04 18:58 | DI.RAD.S_ITS ---
PROCEDURE: XR CHEST 1V INDICATIONS: chest pain TECHNIQUE: One view of the chest was acquired. COMPARISON: [facility], CR, XR CHEST 1 VIEW, 10/13/2022, 12:03. FINDINGS: Surgical changes and devices: None. Lungs and pleura: Lungs are clear. No pleural effusions or pneumothorax. Mediastinum: Mediastinal contours appear normal. Heart size is normal. Bones and chest wall: No suspicious bony lesions. Overlying soft tissues appear unremarkable. IMPRESSION: No acute cardiopulmonary abnormality is seen. Dictated by: Foster Schultz M.D. on 01/04/2025 at 19:50 Approved by: Foster Schultz M.D. on 01/04/2025 at 19:51
--- NOTE | 2025-01-04 19:04 | EKG_ITS ---
[address] [address] Test Date: 2025-01-04 Pat Name: Maine Torres Department: [facility] Room: Gender: Female Business Change Manager: MADELIN : 2000 Requested By: Order Number: [id number] Reading MD: Jose Torres MD Measurements Intervals [place] Rate: 74 P: 24 WI: 138 QRS: 41 QRSD: 98 T: 18 QT: 392 QTc: 435 Interpretive Statements Undetermined rhythm Incomplete right bundle branch block NO PRIOR TRACING Electronically Signed On 01-05-2025 12:58:57 PST by Jose Torres MD
[2025-01-04 19:16] VITALS: BP 118/62; PULSE 83; RESP 16; O2SAT 100
[2025-01-04 19:30] VITALS: BP 102/57; PULSE 82; RESP 28; O2SAT 100
--- NOTE | 2025-01-04 19:35 | ED_ITS ---
HPI - Chest Pain General Chief Complaint: Chest Pain Stated Complaint: bad chest pain Time Seen by Provider: 01/04/25 19:35 Source: patient Mode of arrival: Ambulatory History of Present Illness HPI narrative: 24-year-old female without any significant past medical history presents from home for evaluation of chest pain. Stated it started at around 4:30 a.m. states she was driving and felt the discomfort. States that when she laid down it was better states that she did take baby aspirin at around 5:30 a.m. prior to arrival, she denies any radiation of the symptoms she denies any other symptoms such as headache visual disturbances shortness of breath fever chills nausea vomiting abdominal pain or any other GI/ symptoms time. Not on any blood thinners no recent travel no known sick contacts no trauma or falls. Patient states that she has a history of anxiety just got started on antianxiety medications proximally 1 month ago by her primary care doctor in his wondering if this is a either side effect and/or a ?panic attack. Related Data Home Medications Medication Instructions Recorded Confirmed dextroamphetamine-amphetamine ER 1 cap PO QAM 12/04/23 01/03/25 20 mg 24hr capsule,extend release Previous Rx's Medication Instructions Recorded pantoprazole 40 mg tablet,delayed 40 mg PO 0700,2100 #60 tabs 12/04/23 release Allergies Allergy/AdvReac Type Severity Reaction Status Date / Time tomato Allergy Severe Anaphylaxis Verified 01/04/25 18:52 bupropion AdvReac stomach Verified 01/04/25 18:52 upset Review of Systems Review of Systems Narrative: General: Denies fever, chills, weight loss HEENT: Denies headache, eye drainage, eye irritation, head trauma, sore throat, voice change Cardiovascular: Positive chest pain, denies palpitations, shortness of breath, tachycardia Respiratory: Denies any shortness of breath, cough, wheeze, stridor GI/: Denies any abdominal pain, nausea, vomiting, diarrhea, bright red blood per rectum, melanotic stools, urinary frequency, urinary retention, dysuria, hematuria MSK: Denies any joint pain, muscle pains, swelling Skin: Denies any rashes, lesions, discoloration Neuro: Denies any headache, lightheadedness, dizziness, fainting, weakness Psych: Denies SI/HI Patient History Medical History Asthma Tension headache Anxiety Insomnia Family History Grandmother Hypertension Gallstones Grandfather Diabetes mellitus Cancer Social History Smoking Status: Current every day smoker alcohol intake: current Smoking Status: Current every day smoker tobacco type: vaping alcohol intake frequency: holidays/special occasions only Exam Narrative Exam Narrative: General: Cooperative, comfortable, well-developed, not in acute distress HEENT: Normocephalic, atraumatic, PERRLA, normal sclera, eyelids normal, Neck: Active full range of motion, atraumatic Chest: Normal to inspection, negative crepitus, no overlying erythema ecchymosis Respiratory: Normal respiratory effort, not in acute respiratory distress, clear to auscultation bilaterally negative cough, wheeze, tachypnea, rhonchi, rales Cardiology: Regular rate rhythm negative gallop, murmur, rubs GI/: Normal to inspection, soft, nonrigid, no tenderness to palpation, exam deferred MSK: Full range of active range of motion of all 4 extremities, atraumatic Skin: No rashes lesions noted Neuro: Alert awake oriented x3, moves all 4 extremities spontaneously, cranial nerves intact, able to answer all questions appropriately follows commands appropriately Psych: Cooperative, negative suicidal or homicidal ideations Initial Vital Signs Initial Vital Signs: Vital Signs Temperature 97.5 F L 01/04/25 18:52 Pulse Rate 87 01/04/25 18:52 Respiratory Rate 17 01/04/25 18:52 Blood Pressure 114/67 01/04/25 18:52 Pulse Oximetry 98 01/04/25 18:52 Oxygen Delivery Method Room Air 01/04/25 18:52 Course Orders Ordered: ED Orders 01/04/25 18:58 XR chest 1V Stat EKG-12 Lead Stat 01/04/25 19:30 Complete Blood Count AUTO DIFF Stat Comprehensive Metabolic Panel Stat Lipase Stat Magnesium Stat NT-proBNP (BNP-Adult 18+) Stat PTT Partial Thromboplastin Garret Stat Prothrombin Time INR Stat Troponin & CK Cardiac Panel Stat Discontinued Medications Aspirin (Aspirin 81 Mg Chew Tab) 324 mg PO NOW ONE Stop: 01/04/25 18:59 Last Admin: 01/04/25 19:41 Dose: 243 mg Documented By: LIZ Hydroxyzine HCl (Hydroxyzine Hcl 25 Mg Tablet) 25 mg PO NOW ONE Stop: 01/04/25 19:42 Last Admin: 01/04/25 19:44 Dose: 25 mg Documented By: LIZ Vital Signs Vital signs: Vital Signs - 8 hr 01/04/25 18:52 01/04/25 19:16 01/04/25 19:30 Temperature 97.5 F L Pulse Rate 87 83 82 Respiratory Rate 17 16 28 H Blood Pressure 114/67 118/62 102/57 L Pulse Oximetry 98 100 100 Oxygen Delivery Method Room Air MDM - Chest Pain Differential Diagnosis Differential diagnosis: Likely atypical chest pain, st elevation myocardial infarction, costochondritis, chest pain and other (Pneumonia, electrolyte abnormality) Lab Data 01/04/25 19:30 01/04/25 19:30 Labs: Lab Results 01/04/25 Range/Units 19:30 WBC 10.8 (4.5-11.0) X10^3/uL RBC 4.56 (4.0-5.2) X10^6/uL Hgb 13.7 (12.0-16.0) g/dL Hct 40.9 (36-46) % MCV 89.5 (80-100) fL MCH 29.9 (26-34) PG MCHC 33.4 (30-36) % RDW 14.6 (11.6-14.8) % Plt Count 361 (150-400) X10^3/uL Neut % (Auto) 58.3 (50-75) % Lymph % (Auto) 33.4 (25-40) % Rich % (Auto) 7.2 (3-14) % Eos % (Auto) 0.6 L (2-4) % Baso % (Auto) 0.5 (0-2) % Neut # (Auto) 6300 (9171-5786) /uL Lymph # (Auto) 3600 (3639-0720) /uL Rich # (Auto) 800 (0-900) /uL Eos # (Auto) 100 (0-450) /uL Baso # (Auto) 100 (0-100) /uL PT 11.7 (9.4-12.5) SECONDS INR 1.0 (0.9-1.3) APTT 29 (25.1-36.5) SECONDS Sodium 140 (137-145) mmol/L Potassium 3.9 (3.4-5.1) mmol/L Chloride 106 (98-107) mmol/L Carbon Dioxide 23 (22-32) mmol/L BUN 10 (7-17) mg/dL Creatinine 0.81 (0.52-1.04) mg/dL Estimated GFR > 60 (>60) mL/min BUN/Creatinine Ratio 12.3 (6-22) Glucose 99 (70-100) mg/dL Calcium 9.3 (8.4-10.2) mg/dL Magnesium 2.0 (1.6-2.3) mg/dL Total Bilirubin 0.9 (0.2-1.3) mg/dL AST 32 (14-36) IU/L ALT 21 (<35) IU/L Alkaline Phosphatase 48 (38-126) U/L Total Creatine Kinase 62 (30-135) U/L Troponin I < 0.012 (0.01-0.034) ng/mL NT-Pro-B Natriuret Pep < 20 (<125) pg/mL Total Protein 7.9 (6.3-8.2) g/dL Albumin 4.8 (3.5-5.0) g/dL Globulin 3.1 (1.7-4.1) g/dL Albumin/Globulin Ratio 1.5 (1.0-2.8) Lipase 41 (23-300) U/L Imaging Data Chest x-ray: Radiologist's Impression: [address] [address] XRay Report Signed Patient: Maine Torres MR#: [id number] : 2000 Acct:[id number] Age/Sex: 24 / F Date of Service: 01/04/25 Loc: ED Accession Number: [id number] Procedure: XR chest 1V Ordering Provider: Jerry Jones D.O. PROCEDURE: XR CHEST 1V INDICATIONS: chest pain TECHNIQUE: One view of the chest was acquired. COMPARISON: [facility], , XR CHEST 1 VIEW, 10/13/2022, 12:03. FINDINGS: Surgical changes and devices: None. Lungs and pleura: Lungs are clear. No pleural effusions or pneumothorax. Mediastinum: Mediastinal contours appear normal. Heart size is normal. Bones and chest wall: No suspicious bony lesions. Overlying soft tissues appear unremarkable. IMPRESSION: No acute cardiopulmonary abnormality is seen. ECG Data Interpretation: EKG interpreted ED physician sinus 74 beats per minute QTC 435 incomplete right bundle branch block noted, normal sinus nonspecific ST changes no STEMI MDM Narrative Medical decision making narrative: 24-year-old female without any significant past medical history presents for substernal chest pain/spontaneously around 430. Patient with nonischemic EKG, troponin negative, x-ray without any acute cardiopulmonary abnormalities, remainder of lab work unremarkable. Patient heart score of 0, when patient was initially evaluated was not having any symptoms but does state that her anxiety was improved after hydroxyzine. Patient is well-appearing nontoxic all symptoms have completely resolved. Patient instructed follow up with primary care and Cardiology in outpatient setting she verbalized understanding of this and agrees to being discharged home with outpatient follow up Discharge Plan Departure Patient Disposition: Home Clinical Impression: Chest pain Instructions: DI for Chest Pain Activity Restrictions/Additional Instructions: Please follow up with Cardiology and primary care Please read the discharge instructions sheet carefully and bring all papers to all doctor follow-up visits, as it may contain information that your doctor may want to see. Disease processes change and evolve, if your symptoms worsen or if you develop any new symptoms that are concerning to you please return for evaluation. Your evaluation today does not show any evidence of any life- threatening/serious illnesses requiring admission to the hospital or surgery. Please follow-up with your doctor for re-evaluation in approximately 1 day. Seek immediate medical attention for any worrisome symptoms. *If you do not have a primary care provider please contact the [facility] Resource line at [phone]. They will ask some questions about your medical history and help get you set up with a doctor in the community. Prescriptions: No Action dextroamphetamine-amphetamine 20 mg capsule,extended release 24hr 1 cap PO QAM pantoprazole 40 mg Tablet,Delayed Release (Dr/Ec) 40 mg PO 0700,2100 Qty: 60 3RF Referrals: Johanny Snyder MD [Physician] - Mabel Hartman ARNP [Primary Care Provider] - Stand Alone Forms: Patient Portal/API/Survey
[2025-01-04 19:36] LABS: Add Manual Diff / Slide Review NO; Basophils Absolute Auto 100 /uL (0-100); Basophils Percent Auto 0.5 % (0-2); Eosinophils Absolute Auto 100 /uL (0-450); Eosinophils Percent Auto 0.6 % (2-4); Hematocrit 40.9 % (36-46); Hemoglobin 13.7 g/dL (12.0-16.0); Lymphocytes Absolute Auto 3600 /uL (1100-4500); Lymphocytes Percent Auto 33.4 % (25-40); Mean Corpuscular HGB Conc 33.4 % (30-36); Mean Corpuscular Hemoglobin 29.9 PG (26-34); Mean Corpuscular Volume 89.5 fL (80-100); Monocytes Absolute Auto 800 /uL (0-900); Monocytes Percent Auto 7.2 % (3-14); Neutrophils Absolute Auto 6300 /uL (1500-7000); Neutrophils Percent Auto 58.3 % (50-75); Platelet Count 361 X10^3/uL (150-400); Red Blood Cell Count 4.56 X10^6/uL (4.0-5.2); Red Cell Distribution Width 14.6 % (11.6-14.8); White Blood Cell Count 10.8 X10^3/uL (4.5-11.0)
[2025-01-04] MEDS: ASPIRIN 81 MG CHEW TAB 324 MG PO (19:41)
[2025-01-04 19:43] LABS: Prothrombin Time 11.7 SECONDS (9.4-12.5)
[2025-01-04] MEDS: hydrOXYzine HCL 25 MG TABLET PO (19:44)
[2025-01-04 19:45] LABS: PTT Partial Thromboplastin Tim 29 SECONDS (25.1-36.5)
[2025-01-04 19:51] LABS: Alanine Aminotransferase 21 IU/L (<35); Albumin 4.8 g/dL (3.5-5.0); Albumin Globulin Ratio 1.5 (1.0-2.8); Alkaline Phosphatase 48 U/L (38-126); BUN Creatinine Ratio 12.3 (6-22); Bilirubin Total 0.9 mg/dL (0.2-1.3); Blood Urea Nitrogen 10 mg/dL (7-17); Calcium 9.3 mg/dL (8.4-10.2); Carbon Dioxide 23 mmol/L (22-32); Chloride 106 mmol/L (98-107); Creatine Kinase 62 U/L (30-135); Estimated Glomerular Filt Rate > 60 mL/min (>60); Globulin 3.1 g/dL (1.7-4.1); Glucose 99 mg/dL (70-100); Lipase 41 U/L (23-300); Sodium 140 mmol/L (137-145); Total Protein 7.9 g/dL (6.3-8.2)
[2025-01-04 20:00] VITALS: BP 105/61; PULSE 77; RESP 18; O2SAT 100
[2025-01-04 20:02] LABS: NT-proBNP (BNP-Adult 18+) < 20 pg/mL (<125); Troponin I < 0.012 ng/mL (0.01-0.034)
[2025-01-04 20:06] LABS: Aspartate Aminotransferase 32 IU/L (14-36); HEMOLYSIS 64 (0-50); Potassium 3.9 mmol/L (3.4-5.1)
== END 2025-01-04 20:24 | disposition home or self-care (01) ==
PROVIDERS: Emergency Provider Student in an Organized Health Care Education/Training Program; PCP Registered Nurse
DX: R07.9 Chest pain, unspecified (principal); F41.9 Anxiety disorder, unspecified
CPT/HCPCS: 36415; 71045; 80053; 82550; 83690; 83735; 83880; 84484; 85025; 85610; 85730; 93005; 93010; 99284; A9270